=== PATIENT | female | born 1985 | race Hispanic/Latino ===

== ENCOUNTER 2016-11-02 12:33 | Emergency (ER) | payer OTHER ==
[~2016-11-02] VITALS: Ht 157.5 cm; Wt 67.6 kg
[~2016-11-02 12:33] MED LIST: ALBUTEROL SULF8.5 GM IH; AMOXICILLIN875 MG PO; ANAPROX DS550 M1 PO; DOCUSATE SODIU100 MG PO; ENDOCET 5-3251 EACH PO; FERROUS SULFAT325 MG PO; IBUPROFEN800 MG PO; MEDROL DOSEPAK4 MG PO; MOTRIN800 MG PO; NORCO 5/3251 TABLET; NORCO 5/3251 TABLET PO; PEN-VEE K,VEET500 MG PO; PLAQUENIL200 MG PO; PREDNISONE10 MG PO; PRENATAL TABLE1 EAC3 PO; TORADOL10 MG PO; TYLENOL WITH C1 EACH PO; VICODIN,LORT1 TABLET PO; ZANTAC150 MG PO; ZOFRAN ODT4 MG PO
[2016-11-02 13:21] LABS: HEMATOCRIT 34.2 % (36.0-46.0); MCH 25.6 PG (29.0-34.0); MCHC 31.9 G/DL (30.0-36.0); MCV 80.3 FL (83-99); RBC DIS.WIDTH-CV 14.6 % (11.8-14.6); RBC DIS.WIDTH-SD 42.3 % (39-53); RED BLOOD COUNT 4.26 M/uL (3.80-5.20); WHITE BLOOD COUNT 7.3 K/uL (4.1-10.2)
[2016-11-02 13:31] LABS: CHLORIDE 105 mEq/L (99-109); POTASSIUM 3.9 mEq/L (3.7-5.4); SODIUM 138 mEq/L (136-147)
[2016-11-02 13:33] LABS: GLUCOSE 78 mg/dL (70-99)
[2016-11-02 13:34] LABS: ANION GAP 9 MEQ/L (2-14)
[2016-11-02 13:35] LABS: TOTAL BILIRUBIN 0.5 mg/dL (0.0-1.0)
[2016-11-02 13:37] LABS: ALKALINE PHOSPHATASE 122 IU/L (3-129); GFR ESTIMATE (CALCULATED) > 59 mL/min/
[2016-11-02 13:38] LABS: UREA NITROGEN (BUN) 13 mg/dL (9-23)
[2016-11-02 13:47] LABS: QUANTITATIVE HCG < 4.0 MIU/ML
[2016-11-02 14:09] LABS: ADD MIUA? YES; BILIRUBIN NEGATIVE; BLOOD NEGATIVE; COLOR YELLOW ((YELLOW)); GLUCOSE (STRIP) NEGATIVE; KETONES NEGATIVE; LEUKOCYTES NEGATIVE; NITRITE NEGATIVE; PROTEIN (STRIP) 100; SPECIFIC GRAVITY 1.027 (1.000-1.030); UROBILINOGEN 0.2 MG/DL (0.2-1.0)
[2016-11-02 14:11] LABS: BACTERIA NONE SEEN /HPF; EPITHELIAL CELLS RARE /HPF; MUCUS TRACE /LPF; RED BLOOD CELLS 0-5 /HPF (0-5); UCUL ADDED? NO; WHITE BLOOD CELLS 0-5 /HPF (0-5)
[2016-11-02 14:32] LABS: MEAN PLAT.VOLUME 11.1 uM^3 (9.5-12.4); PLATELET COUNT 317 K/uL (156-360)
[2016-11-02] MEDS ORDERED: NAPROSYN500 MG PO (16:42)
[2016-11-02 17:10] VITALS: BP 132/76
== END 2016-11-02 17:11 | disposition home or self-care (01) ==
LOC: EME 12:33 → EXP 12:33
DX: R10.2 Pelvic and perineal pain (principal); D64.9 Anemia, unspecified; Z97.5 Presence of (intrauterine) contraceptive device
CPT/HCPCS: 76856; 80053; 81003; 84702; 85027; 99281; 99284

== ENCOUNTER 2017-11-03 19:10 | Emergency (ER) | payer OTHER ==
[~2017-11-03] VITALS: Ht 157.5 cm; Wt 56.9 kg
[~2017-11-03 19:10] MED LIST changes: +NAPROSYN500 MG PO
[2017-11-03 23:04] LABS: APPEARANCE CLEAR ((CLEAR)); BILIRUBIN NEGATIVE; BLOOD SMALL; COLOR YELLOW ((YELLOW)); GLUCOSE (STRIP) NEGATIVE; KETONES 5; LEUKOCYTES NEGATIVE; NITRITE NEGATIVE; PROTEIN (STRIP) 100; SPECIFIC GRAVITY 1.009 (1.000-1.030); UROBILINOGEN 0.2 MG/DL (0.2-1.0)
[2017-11-03 23:09] LABS: BACTERIA NONE SEEN /HPF; EPITHELIAL CELLS RARE /HPF; MUCUS TRACE /LPF; RED BLOOD CELLS 0-5 /HPF (0-5); WHITE BLOOD CELLS 0-5 /HPF (0-5)
[2017-11-03] MEDS ORDERED: MOTRIN800 MG PO (23:32)
[2017-11-03] MEDS ORDERED: TAMIFLU75 MG PO (23:32)
[2017-11-03 23:37] VITALS: BP 109/57
== END 2017-11-03 23:45 | disposition home or self-care (01) ==
LOC: EME 19:10
PROVIDERS: Physician Assistant
DX: J11.1 Influenza due to unidentified influenza virus with other respiratory manifestations (principal); M32.9 Systemic lupus erythematosus, unspecified; M79.7 Fibromyalgia; F41.9 Anxiety disorder, unspecified; F32.9 Major depressive disorder, single episode, unspecified
CPT/HCPCS: 81003; 87502; 87651 90; 99281; 99285; J2405; J7030

== ENCOUNTER 2018-01-10 16:55 | Emergency (ER) | payer OTHER ==
[~2018-01-10] VITALS: Ht 157.5 cm; Wt 56.3 kg
[~2018-01-10 16:55] MED LIST changes: +TAMIFLU75 MG PO
[2018-01-10 17:37] LABS: HEMATOCRIT 37.2 % (36.0-46.0); HEMOGLOBIN 12.4 G/DL (11.9-15.5); MCH 28.1 PG (29.0-34.0); MCHC 33.3 G/DL (30.0-36.0); MCV 84.4 FL (83-99); PLATELET COUNT 304 K/uL (156-360); RBC DIS.WIDTH-CV 12.8 % (11.8-14.6); RBC DIS.WIDTH-SD 39.6 % (39-53); RED BLOOD COUNT 4.41 M/uL (3.80-5.20); WHITE BLOOD COUNT 6.3 K/uL (4.1-10.2)
[2018-01-10 17:41] LABS: APPEARANCE SL.HAZY ((CLEAR)); BILIRUBIN NEGATIVE; BLOOD NEGATIVE; COLOR YELLOW ((YELLOW)); GLUCOSE (STRIP) NEGATIVE; KETONES NEGATIVE; LEUKOCYTES NEGATIVE; NITRITE NEGATIVE; PROTEIN (STRIP) 30; SPECIFIC GRAVITY 1.028 (1.000-1.030); UROBILINOGEN 0.2 MG/DL (0.2-1.0)
[2018-01-10 17:49] LABS: ALBUMIN 4.4 g/dL (3.2-4.8)
[2018-01-10 17:50] LABS: CHLORIDE 104 mEq/L (99-109); SODIUM 140 mEq/L (136-147)
[2018-01-10 17:52] LABS: GLUCOSE 85 mg/dL (70-99); TOTAL PROTEIN 9.2 g/dL (6.4-8.3)
[2018-01-10 17:52] LABS: BACTERIA RARE /HPF; EPITHELIAL CELLS 2+ /HPF; MUCUS 2+ /LPF; UCUL ADDED? NO; WHITE BLOOD CELLS 0-5 /HPF (0-5)
[2018-01-10 17:54] LABS: TOTAL BILIRUBIN 1.4 mg/dL (0.0-1.0)
[2018-01-10 17:55] LABS: ALKALINE PHOSPHATASE 120 IU/L (3-129)
[2018-01-10 17:56] LABS: CREATININE 0.7 mg/dL (0.6-1.3); GFR ESTIMATE (CALCULATED) > 59 mL/min/
[2018-01-10 17:57] LABS: AST (GOT) 14 IU/L (2-34); UREA NITROGEN (BUN) 10 mg/dL (9-23)
[2018-01-10 17:58] LABS: ALT (GPT) 8 IU/L (3-49)
[2018-01-10 18:05] LABS: QUANTITATIVE HCG < 4.0 MIU/ML
[2018-01-10 18:34] LABS: LIPASE 27 U/L (1.0-51.0)
[2018-01-10] MEDS ORDERED: ZOFRAN4 MG PO (22:07)
[2018-01-10] MEDS ORDERED: BENTYL10 MG PO (22:07)
[2018-01-10 22:53] VITALS: BP 104/62
== END 2018-01-10 22:54 | disposition home or self-care (01) ==
LOC: EME 16:55
DX: R10.30 Lower abdominal pain, unspecified (principal); Z87.442 Personal history of urinary calculi; M32.9 Systemic lupus erythematosus, unspecified; F41.9 Anxiety disorder, unspecified; F32.9 Major depressive disorder, single episode, unspecified
CPT/HCPCS: 74176; 76856; 80053; 81003; 83690; 84702; 85027; 99281; 99284

== ENCOUNTER 2018-01-12 14:21 | Emergency (ER) | payer OTHER ==
[~2018-01-12] VITALS: Ht 157.5 cm; Wt 56.7 kg
[~2018-01-12 14:21] MED LIST changes: +BENTYL10 MG PO; +ZOFRAN4 MG PO
[2018-01-12 15:41] LABS: HEMATOCRIT 33.1 % (36.0-46.0); HEMOGLOBIN 11.1 G/DL (11.9-15.5); MCH 28.2 PG (29.0-34.0); MCHC 33.5 G/DL (30.0-36.0); PLATELET COUNT 284 K/uL (156-360); RBC DIS.WIDTH-CV 12.7 % (11.8-14.6); RBC DIS.WIDTH-SD 38.9 % (39-53); RED BLOOD COUNT 3.94 M/uL (3.80-5.20); WHITE BLOOD COUNT 6.5 K/uL (4.1-10.2)
[2018-01-12 15:50] LABS: CHLORIDE 106 mEq/L (99-109); POTASSIUM 3.7 mEq/L (3.7-5.4); SODIUM 138 mEq/L (136-147)
[2018-01-12 16:01] LABS: GLUCOSE 75 mg/dL (70-99); TOTAL PROTEIN 8.3 g/dL (6.4-8.3)
[2018-01-12 16:05] LABS: ALKALINE PHOSPHATASE 109 IU/L (3-129); CREATININE 0.6 mg/dL (0.6-1.3); GFR ESTIMATE (CALCULATED) > 59 mL/min/
[2018-01-12 16:06] LABS: AST (GOT) 11 IU/L (2-34); UREA NITROGEN (BUN) 9 mg/dL (9-23)
[2018-01-12 16:08] LABS: ALT (GPT) 7 IU/L (3-49)
[2018-01-12 16:15] LABS: QUANTITATIVE HCG < 4.0 MIU/ML
[2018-01-12 16:26] LABS: APPEARANCE SL.HAZY ((CLEAR)); BILIRUBIN NEGATIVE; BLOOD SMALL; COLOR YELLOW ((YELLOW)); GLUCOSE (STRIP) NEGATIVE; KETONES NEGATIVE; LEUKOCYTES NEGATIVE; NITRITE NEGATIVE; PROTEIN (STRIP) 30; SPECIFIC GRAVITY 1.025 (1.000-1.030)
[2018-01-12 16:32] LABS: BACTERIA NONE SEEN /HPF; EPITHELIAL CELLS 2+ /HPF; MUCUS TRACE /LPF; RED BLOOD CELLS 0-5 /HPF (0-5); UCUL ADDED? NO; WHITE BLOOD CELLS 0-5 /HPF (0-5)
[2018-01-12] MEDS ORDERED: ULTRAM50 MG PO (17:14)
[2018-01-12 17:16] LABS: SOURCE SWAB
[2018-01-12 17:38] VITALS: BP 118/70
[2018-01-12 22:11] LABS: CANDIDA DNA PROBE NEGATIVE; GARDNERELLA DNA PROBE NEGATIVE; TRICHOMONAS DNA PROBE NEGATIVE
== END 2018-01-12 17:38 | disposition home or self-care (01) ==
LOC: RME 14:21 → EME 14:21 → RME 17:38
PROVIDERS: Nurse Practitioner Family
DX: N73.9 Female pelvic inflammatory disease, unspecified (principal); R10.2 Pelvic and perineal pain; F32.9 Major depressive disorder, single episode, unspecified; M32.9 Systemic lupus erythematosus, unspecified; Z87.442 Personal history of urinary calculi; F41.9 Anxiety disorder, unspecified; Z97.5 Presence of (intrauterine) contraceptive device
CPT/HCPCS: 76856; 80053; 81003; 84702; 85027; 87210; 87480; 87491; 87510; 87591; 87660; 99281; 99285; J0500; J0696; J1885